=== PATIENT | female | born 1990 | race African-American/Black ===

== ENCOUNTER 2020-12-02 17:21 | Emergency (ER) | payer MEDICAID ==
[~2020-12-02] VITALS: Ht 167.6 cm; Wt 86.0 kg
[2020-12-02 17:40] VITALS: BP 119/68
[2020-12-02] MEDS ORDERED: PNV1TAB.3 MT (18:44)
== END 2020-12-02 18:57 | disposition home or self-care (01) ==
LOC: ER 17:21
DX: O26.891 Other specified pregnancy related conditions, first trimester (principal); Z3A.08 8 weeks gestation of pregnancy
CPT/HCPCS: 81025; 99282